=== PATIENT | female | born 1935 | race Caucasian/White ===

== ENCOUNTER 2018-01-28 14:04 | Emergency (ER) | payer MEDICARE, BC ==
[2018-01-28 15:00] LABS: #Eosinphils 0.4 thou/uL (0.0-0.7); #Lymphocytes 2.1 thou/uL (1.20-3.40); #Monocytes 0.4 thou/uL (0.11-0.59); #Neutrophils 5.6 thou/uL (1.40-6.50); %Basophils 0.3 % (0.0-1.0); %Eosinophils 4.9 % (0.0-10.0); %Lymphocytes 24.4 % (21.0-51.0); %Monocytes 5.1 % (0.0-10.0); %Neutrophils 65.4 % (42.0-75.0); Mean Corpuscular HGB CONC 31.9 g/dL (32.0-36.0); Mean Corpuscular Hemoglobin 29.6 pg (27.0-31.0); Mean Corpuscular Volume 92.9 fL (78.0-98.0); Mean Platelet Volume 6.2 fL (7.4-10.4); Platelet Count 376 thou/uL (130-400); RBC Distribution Width 12.1 % (11.5-14.5); Red Blood Cell (RBC) Count 4.06 mill/uL (4.20-5.40); White Blood Cell (WBC) Count 8.6 thou/uL (4.8-10.8)
--- NOTE | 2018-01-28 15:13 | CT ---
CT OF HEAD NONCONTRAST: Indication: Post-traumatic pain. FINDINGS: There is no acute intracranial hemorrhage, midline shift, or ventriculomegaly. There is minimal chron ic ischemic disease. IMPRESSION: 1. No acute intracranial hemorrhage or mass effect. 2. There is a small left parietal scalp hematoma posterior to the vertex. POS: [facility]
[2018-01-28 15:20] LABS: ALT (SGPT) 21 U/L (8-55); AST (SGOT) 24 U/L (5-34); Albumin 4.2 g/dL (3.4-4.8); Alkaline Phosphatase 103 U/L (40-150); Anion Gap 13 mmol/L (10-20); BUN (Urea Nitrogen) 11 mg/dL (9.8-20.1); Bilirubin, Total 0.3 mg/dL (0.2-1.2); Calc. Creatinine Clearance 0 mL/min (70-130); Calcium 9.6 mg/dL (7.8-10.44); Carbon Dioxide 24 mmol/L (23-31); Chloride 101 mmol/L (98-107); Estimated GFR-MDRD 67; Globulin 2.9 g/dL (2.4-3.5); Glucose 98 mg/dL (83-110); Potassium 4.5 mmol/L (3.5-5.1); Protein, Total 7.1 g/dL (6.0-8.3); Sodium 133 mmol/L (136-145)
[2018-01-28 15:24] LABS: CKMB 4.5 ng/mL (0-6.6); Troponin I Less than 0.010 ng/mL (< 0.028)
[2018-01-28] MEDS ORDERED: traMADol HCl 50 MG TAB ONE (15:32)
--- NOTE | 2018-01-28 15:46 | CT ---
CT OF THE PELVIS WITHOUT CONTRAST: COMPARISON: None. HISTORY: Fall with head trauma and pelvic pain. TECHNIQUE: Multiple contiguous axial images were obtained in a CT of the pelvis without contrast. Sagittal and c oronal reformats were performed. FINDINGS: No fracture or dislocation is seen. NO significant degenerative change is seen in either hip. Mild degenerative changes are seen in the lumbar spine. Scattered diverticula are seen in the colon. The right kidney is low-lying. The left kidney was not imaged. IMPRESSION: No evidence of acute osseous abnormality of the bones of the pelvis. POS: [facility]
--- NOTE | 2018-01-28 16:36 | CT ---
CERVICAL SPINE CT NONCONTRAST: 01/28/18 CLINICAL HISTORY: Posttraumatic neck pain. Fall. FINDINGS: There is marked degenerative irregularity of the mid cervical spine with prominent kyphosis. There is a vertebra plana appearance of the C5 vertebral body. Prominent superior end plate irregularity with moderate height loss of C6 is present and there is obliteration of the C6-7 disc space which is wil ersed by osseous fusion of the anterior elements. No acute craniocervical distraction injury. There i s a prominent posterior osteophytosis of the mid cervical spine effacing the ventral aspect of the ve rtebral canal, limited assessment by noncontrast CT imaging. When referencing prior MRI cervical spin e, 10/20/12, a similar configuration of the cervical spine is demonstrated. IMPRESSION: Extensive deformity of the cervical spine demonstrating similar morphology to MRI 10/20/12. Otherwise n o definite acute fracture is seen. POS: [facility]
== END 2018-01-28 16:16 | disposition home or self-care (01) ==
LOC: ERS 14:04
DX: S06.9X1A Unspecified intracranial injury with loss of consciousness of 30 minutes or less, initial encounter (principal); M81.0 Age-related osteoporosis without current pathological fracture; I10 Essential (primary) hypertension; F41.9 Anxiety disorder, unspecified; W01.0XXA Fall on same level from slipping, tripping and stumbling without subsequent striking against object, initial encounter
CPT/HCPCS: 36415; 70450; 72125; 72192; 80053; 82553; 84484; 85025

== ENCOUNTER 2018-06-03 09:55 | Inpatient (IN) | payer MEDICARE, BC ==
[~2018-06-03 09:55] MED LIST: Glycopyrrolate 0.2 MG/ML 5 ML SYRINGE ONE; Ondansetron PF 4 MG/2 ML Vial ONE; PHENYLEPHRINE-NS 100 MCG/ML 10 ML SYRINGE ONE; Rocuronium Bromide 10 MG/ML (10ML VIAL) ONE
[2018-06-03] MEDS ORDERED: Morphine 2 MG/ML SYRINGE ONE ×2 (10:21→10:47)
[2018-06-03] MEDS ORDERED: Ondansetron PF 4 MG/2 ML Vial ONE (10:47)
[2018-06-03 10:52] LABS: #Eosinphils 0.1 thou/uL (0.0-0.7); #Monocytes 0.6 thou/uL (0.11-0.59); #Neutrophils 12.9 thou/uL (1.40-6.50); %Eosinophils 0.7 % (0.0-10.0); %Lymphocytes 6.7 % (21.0-51.0); %Monocytes 4.3 % (0.0-10.0); %Neutrophils 88.3 % (42.0-75.0); Anisocytosis SLIGHT = 6-15 cells (100X) (0-5/hpf); Band 10 % (5-11); Eosinophils 1 % (0-10); Hemoglobin 9.3 g/dL (12.0-16.0); Lymphocytes 7 % (21-51); MDiff Complete? YES; Mean Corpuscular HGB CONC 31.8 g/dL (32.0-36.0); Mean Corpuscular Hemoglobin 26.8 pg (27.0-31.0); Mean Corpuscular Volume 84.2 fL (78.0-98.0); Mean Platelet Volume 6.7 fL (7.4-10.4); Metamyelocyte 1 % (0-0); Monocytes 1 % (0-10); Myelocyte 1 % (0-0); Neutrophil 79 % (42-75); Platelet Count 715 thou/uL (130-400); Platelet Morphology Comment Appears Increased; RBC Distribution Width 15.6 % (11.5-14.5); Red Blood Cell (RBC) Count 3.46 mill/uL (4.20-5.40); White Blood Cell (WBC) Count 14.6 thou/uL (4.8-10.8)
[2018-06-03 10:59] LABS: ALT (SGPT) 12 U/L (8-55); AST (SGOT) 12 U/L (5-34); Albumin 2.8 g/dL (3.4-4.8); Alkaline Phosphatase 103 U/L (40-150); Anion Gap 12 mmol/L (10-20); BUN (Urea Nitrogen) 8 mg/dL (9.8-20.1); Bilirubin, Total 0.3 mg/dL (0.2-1.2); Calc. Creatinine Clearance 0 mL/min (70-130); Calcium 8.1 mg/dL (7.8-10.44); Carbon Dioxide 24 mmol/L (23-31); Chloride 101 mmol/L (98-107); Estimated GFR-MDRD 77; Globulin 2.2 g/dL (2.4-3.5); Glucose 96 mg/dL (83-110); Sodium 134 mmol/L (136-145)
[2018-06-03 11:10] LABS: Bilirubin Small (Negative); Blood, Urine Small (Negative); Clarity CLOUDY (Clear); Glucose, Urine (Dipstick) Negative (Negative); Leukocyte Small (Negative); Nitrite Negative (Negative); Protein, Urine (Dipstick) 30 mg/dL (Neg-Trace); Specific Gravity, Urine 1.016 (1.002-1.036); Urobilinogen 0.2 mg/dL (0.2-1.0)
[2018-06-03 11:19] LABS: Bacteria/HPF None Seen HPF (None Seen); Hyaline Casts/LPF 7-10 HYALINE CAST LPF (0-3 Hyaline); Pathc Cast-AUWi Flag 2.17 (0-2.49); WBC/HPF 0-3 HPF (0-3)
[2018-06-03 11:21] LABS: Yeast-AUWi Flag 40.5 (0-25.0)
[2018-06-03 11:29] LABS: RBC/HPF 0-3 HPF (0-3); Yeast-All Forms None Seen HPF (None Seen)
[2018-06-03] MEDS ORDERED: D5 1/2 NS w/40 mEq KCL 1,000 ML IV SCH (13:45)
--- NOTE | 2018-06-03 15:08 | HP ---
HISTORY OF PRESENT ILLNESS: Cher Perera is an 82-year-old female, lives in [place]. She presented to [facility], and on 05/21/2018, she underwent laparoscopic abdominal washout, colostomy for perforated colon from an impaction. She apparently did well and was discharged, but readmitted on May 29 for drainage of a pelvic abscess. Prior to being discharged, she had a significant colostomy prolapse, but was seen by Dr. Wright, reassured and sent home. This is worsened. She is followed by [facility]. The patient presents to the emergency room at [facility] with significant colostomy prolapse. It cannot be reduced. The patient has had a lifelong problem with constipation. The patient does not want to return to [facility] and wants to assume her care here, thus I am seeing her. ALLERGIES: SULFA. SHE REPORTS OTHER ALLERGIES LISTED IN THE RECORD THAT THEY WERE NOT EFFECTIVE AND HAS SIDE EFFECTS, BUT THERE ARE NO ALLERGIES TO DULOXETINE, LEVOTHYROXINE, MIRTAZAPINE OR PAROXETINE. SHE IS ONLY ALLERGIC TO SULFA. HABITS: Tobacco, none. Alcohol, none. MEDICATIONS AT HOME: 1. Lotrisone cream. 2. Colestid. 3. Colace. 4. Gabapentin 100 mg morning and two tablets at bedtime. 5. Atrovent inhaler p.r.n. 6. Ativan 1 mg p.o. a.m. and two tablets at bedtime for anxiety. 7. Metoprolol XL 25 twice a day. 8. Protonix 40 mg a day. 9. Zoloft 25 mg a day. 10. Tramadol as needed for pain. PAST MEDICAL HISTORY: Chronic constipation, bronchiectasis, degenerative arthropathy, hypertension, mitral valve prolapse, osteoporosis, and peptic ulcer disease. PAST SURGICAL HISTORY: Hysterectomy, salpingo-oophorectomy, prior to that D and C on 05/21/2018, laparoscopic colostomy due to a perforated rectosigmoid from chronic constipation impaction on 05/19/2018, Interventional Radiology drainage of pelvic abscess. REVIEW OF SYSTEMS: Ten-point noncontributory. Family is with her. The patient lives at home with her . She is ambulatory, sometimes with a cane or walker. PHYSICAL EXAMINATION: GENERAL: The patient is stable. VITAL SIGNS: Blood pressure 120/74, heart rate 74, and respiratory rate 18. HEAD, EARS, EYES, NOSE, AND THROAT: Unremarkable. LUNGS: Clear to auscultation. CARDIAC: Regular rate and rhythm. No murmur or gallop. ABDOMEN: Soft and nontender. She has a large colostomy prolapse, probably more than 1 foot. Efforts to reduce this resulted in a small perforation of the colon. The colon is healthy and red otherwise. ASSESSMENT/PLAN: Colostomy prolapse. Plan revision possible laparoscopy today. Risks and benefits were discussed. Will likely need admission overnight postoperatively. Job ID: [id number]
[2018-06-03] MEDS ORDERED: Bupivacaine/Epinephrine 0.25% 30 ML VIAL ONE (15:17)
[2018-06-03] MEDS ORDERED: Bupivacaine PF 0.5% 30 ML VIAL ONE (15:17)
[2018-06-03] MEDS ORDERED: Bupivacaine HCl 0.5%/Epinephrine 1:200,000/PF 30 ml Vial ONE (16:13)
[2018-06-03] MEDS ORDERED: cefOXitin 2 GM VIAL ONE (17:06)
[2018-06-03] MEDS ORDERED: Sodium Chloride 0.9% 100 ML ONE (17:06)
[2018-06-03] MEDS ORDERED: Lidocaine 2% Jelly 5 ML TUBE ONE (17:08)
[2018-06-03] MEDS ORDERED: Fentanyl 100 MCG/2 ML VIAL ONE ×2 (17:08→19:52)
[2018-06-03] MEDS ORDERED: Promethazine HCl 25 MG/ML VIAL ONE (19:52)
[2018-06-03] MEDS ORDERED: Morphine 4 MG/ML VIAL SLOW IVP PRN ×2 (19:54)
[2018-06-03] MEDS ORDERED: Ondansetron ODT 4 MG TAB PO PRN (19:54)
[2018-06-03] MEDS ORDERED: hydrALAZINE 20 MG/ML VIAL SLOW IVP PRN (19:54)
[2018-06-03] MEDS ORDERED: Ondansetron PF 4 MG/2 ML Vial IVP PRN (19:54)
[2018-06-03] MEDS ORDERED: traMADol HCl 50 MG TAB PO PRN (20:00)
[2018-06-03] MEDS: Famotidine 20 MG TAB PO SCH (22:15)
[2018-06-03] MEDS: NS 0.9% w/ 40 MEQ KCL 1,000 ML IV SCH (23:08)
[2018-06-03] MEDS: Ketorolac Tromethamine 30 MG/ML VIAL IVP PRN (23:17)
[2018-06-03] MEDS: Enoxaparin Sodium 40 MG/0.4 ML SYRINGE SC SCH (23:17)
[2018-06-03] MEDS: Acetaminophen 1,000 MG in Premix Bag 1 BAG IVPB PRN (23:17)
[2018-06-04 00:16] VITALS: BMI 14.6
--- NOTE | 2018-06-04 00:39 | OP ---
DATE OF PROCEDURE: 06/03/2018 PREOPERATIVE DIAGNOSES: Diverting loop colostomy, left lower quadrant malfunction with intussusception and prolapse of a foot and a half of colon, incarcerated, cannot reduce and painful. POSTOPERATIVE DIAGNOSES: Diverting loop colostomy, left lower quadrant malfunction with intussusception and prolapse of a foot and a half of colon, incarcerated, cannot reduce and painful with findings of a transverse colon, loop colostomy instead of sigmoid. PROCEDURE PERFORMED: Laparoscopic colon resection with revision of colostomy. ANESTHESIA: General. ESTIMATED BLOOD LOSS: 25 mL. SPECIMEN: Transverse colon to pathology. FINDINGS: Laparoscopy revealed a transverse colostomy in location. After discussion with surgeon, felt it was sigmoid. She has a many year history of chronic constipation, but presented to [facility] 2 weeks ago, conscious sedation, with findings on CAT scan of perirectal air without fluid collection, underwent diverting colostomy laparoscopically by Dr. Bermudez. She was discharged home, but had to return for Interventional Radiology CT-guided drainage of pelvic abscess. This drain is in place. The patient states that she had prolapse in hospital at [facility], Dr. Wright saw her prior to discharge and reassured her that a foot and a half of colon prolapse would resolve. The patient presented to the emergency room today with pain and progression of her prolapse. She was offered to transfer back to [facility], but she wanted to stay at [facility] for care. I was thus consulted. I then discussed with Dr. Bermudez and he communicated the condition as laparoscopic loop diverting colostomy. DESCRIPTION OF PROCEDURE: The patient was taken to the operating room. Under general anesthesia, Kirkland catheter was placed at the beginning of the procedure and removed at the end. Abdomen was prepared with Betadine and draped in routine fashion. The prolapsed colon was hung off sterile towels and covered with sterile towels to the left of the abdomen. The colostomy was in the left lower quadrant. Under sterile conditions, the right lateral subcostal incision made, pneumoperitoneum to 15 mmHg obtained. A Veress needle replaced with a 5 port. Right mid abdominal incision made and a 12 port placed. In the right lower quadrant, an incision made and a 5 port placed. In the right upper quadrant, more medial subcostal incision made and a 5 port placed; all under laparoscopic visualization. I could visualize the colostomy, identify the right colon, followed the right colon towards the colostomy identifying the more proximal colon. The distal colon was identified. Efforts to reduce these 2 limbs was impossible. I then took down the adjacent gastrocolic ligament enough with a LigaSure, identified the distal transverse colon. I then identified the mesentery, which was very thin and dissected this free up towards the prolapsed intussusceptic colon. At this point, the distal colon divided just below the colostomy site with BIANCA blue load fire stapler. The patient will have a long Zulema's pouch. There were some constipated stool in the descending colon. At this point, good hemostasis was noted. I skeletonized the more proximal colon just before entering the colostomy site and traced it back to the right colon and ileocecal valve. Once this was properly identified, I then discontinued the pneumoperitoneum and covered the laparoscopy sites with a sterile drape and proceeded to the lower side of the abdomen where then I removed the maturation Vicryl sutures from the colostomy and freed it bluntly from the colostomy site and pulled it out of the wound. The more proximal transverse colon was then transected at a viable margin with a cautery and 4 Yohannes sutures of 3-0 Vicryl placed to vin the colostomy and then simple sutures of 3-0 Vicryl placed to complete maturation after final division of the colon and intussusception prolapse. Sections submitted to Pathology. At this point, colostomy palpated and was noted to be healthy. It traced back to the right of the abdomen. As colostomy appliance was secured, I then changed gowns and gloves and returned to the sterile portion where the laparoscopy sites were closed with interrupted subdermal 4-0 Monocryl and Converse glue applied. The patient tolerated the procedure well without complications. Job ID: [id number]
[2018-06-04 06:20] LABS: #Eosinphils 0.2 thou/uL (0.0-0.7); #Lymphocytes 1.3 thou/uL (1.20-3.40); #Monocytes 0.4 thou/uL (0.11-0.59); #Neutrophils 8.9 thou/uL (1.40-6.50); %Basophils 0.1 % (0.0-1.0); %Eosinophils 2.2 % (0.0-10.0); %Lymphocytes 11.9 % (21.0-51.0); %Monocytes 3.9 % (0.0-10.0); %Neutrophils 81.9 % (42.0-75.0); Mean Corpuscular HGB CONC 30.9 g/dL (32.0-36.0); Mean Corpuscular Hemoglobin 25.8 pg (27.0-31.0); Mean Corpuscular Volume 83.3 fL (78.0-98.0); Mean Platelet Volume 6.7 fL (7.4-10.4); Platelet Count 619 thou/uL (130-400); RBC Distribution Width 15.4 % (11.5-14.5); Red Blood Cell (RBC) Count 3.12 mill/uL (4.20-5.40); White Blood Cell (WBC) Count 10.8 thou/uL (4.8-10.8)
[2018-06-04] MEDS ORDERED: traMADol HCl 50 MG TAB PO PRN (06:21)
[2018-06-04] MEDS: Arformoterol 15 MCG/2 ML NEB NEB SCH ×2 (06:52→18:51)
[2018-06-04] MEDS: Budesonide 0.5 MG/2 ML NEB NEB SCH ×2 (06:52→18:44)
[2018-06-04 07:21] LABS: ALT (SGPT) 8 U/L (8-55); AST (SGOT) 8 U/L (5-34); Albumin 2.1 g/dL (3.4-4.8); Alkaline Phosphatase 86 U/L (40-150); Anion Gap 12 mmol/L (10-20); BUN (Urea Nitrogen) 8 mg/dL (9.8-20.1); Bilirubin, Total 0.2 mg/dL (0.2-1.2); Calc. Creatinine Clearance 33 mL/min (70-130); Calcium 7.7 mg/dL (7.8-10.44); Carbon Dioxide 22 mmol/L (23-31); Chloride 109 mmol/L (98-107); Estimated GFR-MDRD 74; Globulin 2.2 g/dL (2.4-3.5); Glucose 79 mg/dL (83-110); Potassium 4.2 mmol/L (3.5-5.1); Protein, Total 4.3 g/dL (6.0-8.3); Sodium 139 mmol/L (136-145)
[2018-06-04] MEDS: NS 0.9% w/ 40 MEQ KCL 1,000 ML IV SCH (07:40)
[2018-06-04] MEDS: Acetaminophen 1,000 MG in Premix Bag 1 BAG IVPB PRN (08:06)
[2018-06-04] MEDS ORDERED: Lorazepam 1 MG TAB PO SCH (09:00)
[2018-06-04] MEDS: Amlodipine 10 MG TAB PO SCH (10:19)
[2018-06-04] MEDS: cloNIDine 0.1 MG TAB PO SCH ×2 (10:19→20:59)
[2018-06-04] MEDS: AMOXicillin 250 MG CAP PO SCH ×3 (10:19→20:58)
[2018-06-04] MEDS: Docusate 100 MG CAP PO SCH ×2 (10:20→21:00)
[2018-06-04] MEDS: Lorazepam 1 MG TAB PO SCH ×2 (10:20→20:59)
[2018-06-04] MEDS: Metoprolol Tartrate 25 MG TAB PO SCH ×2 (10:20→21:00)
[2018-06-04] MEDS: Famotidine 20 MG TAB PO SCH ×2 (10:20→20:59)
[2018-06-04] MEDS: Gabapentin 100 MG CAP PO SCH ×2 (10:21→20:59)
[2018-06-04] MEDS: traMADol HCl 50 MG TAB PO PRN (10:21)
[2018-06-04] MEDS: Enoxaparin Sodium 40 MG/0.4 ML SYRINGE SC SCH (21:00)
--- NOTE | 2018-06-04 21:44 | PRG ---
DATE OF SERVICE: SUBJECTIVE: Ms. Perera is doing well after revision of her colostomy, laparoscopic, converting her from a loop transverse colon colostomy to an end-colostomy with a long Zulema pouch. Findings at operation were a large constipated stool ball in the descending colon, but this should pass with time. The patient feels much better this morning, does not have the pain that she had preoperatively. Attempts to ambulate the patient today revealed that she is severely weak and not independent at all and it is recommended she go to rehab. I have consulted Case Management and family, who has encouraged the patient to go to rehab, and I think she will be agreeable await that assessment. She is ready to transfer to rehab at any time. OBJECTIVE: VITAL SIGNS: Temperature 98.3 degrees and blood pressure 118/55. LUNGS: Clear to auscultation. CARDIAC: Regular rate and rhythm without murmur or gallop. ABDOMEN: Soft, nontender, and nondistended. She has gas in her colostomy bag. Her colostomy is healthy and pink, slightly edematous, but healthy. ABDOMEN: Soft. Good bowel sounds. EXTREMITIES: Unremarkable. LABORATORY DATA: This morning, her white count is 10 and hemoglobin 8. Basic metabolic profile is normal. ASSESSMENT AND PLAN: 1. Severe deconditioning. Recommend rehab and she is ready for transfer at any time. We will saline lock her. Resume her home medications. She will need laxatives. 2. The patient has a drain placed in her pelvis by Interventional Radiology. Nurses last night reported to me that the drain was turned to off. I have asked the family to try to find out what kind of drainage has been coming out. Once the drain was placed to open, there was stool material draining out. Orders were given for the nurses to irrigate this drain with 10 mL of saline into the patient three times a day to keep it patent. It is not surprising this was draining stool material as she had severe fecal impaction and rectal ulceration at [facility] requiring diversion colostomy. At that time, CAT scans revealed mostly air around the rectum, perirectal space. I talked to Dr. Bermudez, and at the time of her diverting colostomy, there was only air, no fluid collection, nothing to drain. She, however, was readmitted, brought back to the hospital. Interventional Radiology placed a drain to drain this current process. The patient is hemodynamically stable and not septic. I would recommend that we irrigate this catheter, monitor the drainage output, and repeat her CAT scan next week of the pelvis to check the status of this collection. Hopefully, this will resolve without further surgical intervention, but currently none is indicated as she is hemodynamically stable, afebrile, without signs of sepsis, and she has not had any pain. Job ID: [id number]
[2018-06-05] MEDS: Arformoterol 15 MCG/2 ML NEB NEB SCH ×2 (06:51→19:37)
[2018-06-05] MEDS: Budesonide 0.5 MG/2 ML NEB NEB SCH ×2 (06:51→19:36)
[2018-06-05] MEDS: Docusate 100 MG CAP PO SCH ×2 (08:59→22:27)
[2018-06-05] MEDS: Famotidine 20 MG TAB PO SCH ×2 (08:59→22:28)
[2018-06-05] MEDS: Gabapentin 100 MG CAP PO SCH ×2 (09:00→22:28)
[2018-06-05] MEDS: Amlodipine 10 MG TAB PO SCH (09:00)
[2018-06-05] MEDS: Metoprolol Tartrate 25 MG TAB PO SCH ×2 (09:00→22:28)
[2018-06-05] MEDS: cloNIDine 0.1 MG TAB PO SCH ×2 (09:00→22:29)
[2018-06-05] MEDS: Lorazepam 1 MG TAB PO SCH ×2 (09:00→22:29)
[2018-06-05] MEDS: Ketorolac Tromethamine 30 MG/ML VIAL IVP PRN (09:02)
[2018-06-05] MEDS: AMOXicillin 250 MG CAP PO SCH ×3 (10:51→22:28)
[2018-06-05 13:46] LABS: Hemoglobin 8.4 g/dL (12.0-16.0); Mean Corpuscular HGB CONC 30.4 g/dL (32.0-36.0); Mean Corpuscular Hemoglobin 26.7 pg (27.0-31.0); Mean Corpuscular Volume 87.9 fL (78.0-98.0); Mean Platelet Volume 6.8 fL (7.4-10.4); Platelet Count 665 thou/uL (130-400); RBC Distribution Width 15.5 % (11.5-14.5); Red Blood Cell (RBC) Count 3.14 mill/uL (4.20-5.40); White Blood Cell (WBC) Count 13.9 thou/uL (4.8-10.8)
[2018-06-05 13:55] LABS: Anion Gap 11 mmol/L (10-20); BUN (Urea Nitrogen) 10 mg/dL (9.8-20.1); Calc. Creatinine Clearance 31 mL/min (70-130); Calcium 8.1 mg/dL (7.8-10.44); Carbon Dioxide 21 mmol/L (23-31); Chloride 107 mmol/L (98-107); Estimated GFR-MDRD 71; Glucose 112 mg/dL (83-110); Potassium 4.6 mmol/L (3.5-5.1); Sodium 134 mmol/L (136-145)
[2018-06-05 14:48] LABS: Anisocytosis SLIGHT = 6-15 cells (100X) (0-5/hpf); Band 21 % (5-11); Eosinophils 2 % (0-10); Hypochromia SLIGHT = 6-15 cells (100X) (0-5/hpf); Lymphocytes 4 % (21-51); MDiff Complete? YES; Monocytes 1 % (0-10); Neutrophil 71 % (42-75); Ovalocytes SLIGHT = 2-5 cells (100X) (0-1/hpf); Platelet Morphology Comment Appears Increased; Polychromasia SLIGHT = 2-3 cells (100X) (0-2/hpf); Reactive Lymphocytes 1 % (0-10)
--- NOTE | 2018-06-05 16:24 | PQF ---
CLINICAL DOCUMENTATION IMPROVEMENT CLARIFICATION FORM: ICD-10 Updated PLEASE DO AN ADDENDUM TO THE PROGRESS NOTE WITH ANY DOCUMENTATION UPDATES OR ADDITIONS AND CARRY THROUGH TO DC SUMMARY. THANK YOU. Date: 06/05/2018; 06/06/2018 ATTN: Dr. Manzano Please exercise your independent, professional judgment in responding to the clarification form. Clinical indicators are provided on the bottom of this form for your review Please check appropriate box(s): [ ] Underweight without malnutrition [ yes ] Cachexia [ yes] Other diagnosis _chronic constipation,fecal impaction, rectal erosion, pelvic abscess, colostomy [prolapse/intussuception [ ] Unable to determine In addition, please specify: Present on Admission (POA): [ yes ] Yes [ ] No [ ] Unable to determine CLINICAL INDICATORS - SIGNS / SYMPTOMS / LABS PN 06/04: Severe deconditioning. Senior Staff Psychologist Assessment 06/05: Pt was triggered for low BMI 14.6 Estimated needs: kcal/kg for healing in underweight patient KCal range: 3254-0917 kcal G Protein Range: 43-73 g RISKS: H&P: 82 yo. Laparoscopic colostomy due to a perforated rectosigmoid from chronic constipation impaction on 05/19/2018 , Interventional Radiology drainage of pelvic abscess. Colostomy prolapse. Op Note 06/03: Laparoscopic colon resection with revision of colostomy TREATMENT: Order 06/05: Supplement: Ensure Enlive BID Moderate Malnutrition (in acute illness) Energy Intake: <75% of estimated energy requirement for > 7 days Weight Loss: 1-2%/1 week; 5%/ 1 month; 7.5%/3 months Other: mild body fat loss; mild muscle mass loss; mild fluid accumulation; Severe Malnutrition (in acute illness) Energy Intake: < 50% of estimated energy requirement for > 5 days Weight Loss: >1-2%/1 week; >5%/1 month; >7.5%/3 months Other: moderate body fat loss; moderate muscle mass loss; moderate- severe fluid accumulation; measurably reduced telephone sterilizer strength Moderate Malnutrition (in chronic illness) Energy Intake: <75% of estimated energy requirement for >1 month Weight Loss: 5%/1 month; 7.5%/3 months; 10%/6 months; 20%/1 year Other: mild body fat loss; mild muscle mass loss; mild fluid accumulation Severe Malnutrition (in chronic illness) Energy Intake: <75% of estimated energy requirement for >1 month Weight Loss: >5%/1 month; >7.5%/3 months; >10%/6 months; >20%/1 year Other: severe body fat loss; severe muscle mass loss; severe fluid accumulation; measurably reduced telephone sterilizer strength Thank you, Fouzia (This form is maintained as a part of the permanent medical record) 2015 [employer], [place]. All Rights Reserved Fouzia Colindres RN, BSN [email or web address] Office: [phone] [facility] MED[facility] CENTERDarlyn
--- NOTE | 2018-06-05 20:43 | PRG ---
DATE OF SERVICE: 06/05/2018 SUBJECTIVE: Ms. Perera is doing well today. She complains of inability to eat well because of poor fitting dentures. She is not independently mobile, but is refusing rehab. She wants to go home with her caregivers. OBJECTIVE: VITAL SIGNS: Temperature 98.3 degrees, pulse 83, and blood pressure 107/58. LABORATORY DATA: White count 13.9, hemoglobin 8.4. Basic metabolic profile normal. The patient seemed to be little confused this morning, but was moving all extremities and following commands and arousable. She had not taken any medications that would alter her mental status. This evening, she is alert, oriented, and appropriate. She states that she would get out of bed if somebody would help her, but when nurses in therapy has worked with her, she was very weak and not independent at all. ASSESSMENT AND PLAN: Severe deconditioning. The patient insisted on going home. We will discuss with the patient's family tomorrow and plan discharge home tomorrow if she refuses rehab. Job ID: [id number]
[2018-06-05] MEDS: Acetaminophen 500 MG TAB PO PRN (22:27)
[2018-06-05] MEDS: Enoxaparin Sodium 40 MG/0.4 ML SYRINGE SC SCH (22:27)
[2018-06-05] MEDS: NS 0.9% w/ 40 MEQ KCL 1,000 ML IV SCH (23:24)
[2018-06-06] MEDS: traMADol HCl 50 MG TAB PO PRN ×2 (00:43→08:25)
[2018-06-06] MEDS: Arformoterol 15 MCG/2 ML NEB NEB SCH (08:17)
[2018-06-06] MEDS: Budesonide 0.5 MG/2 ML NEB NEB SCH (08:19)
[2018-06-06] MEDS: cloNIDine 0.1 MG TAB PO SCH (08:24)
[2018-06-06] MEDS: Amlodipine 10 MG TAB PO SCH (08:26)
[2018-06-06] MEDS: Lorazepam 1 MG TAB PO SCH (08:26)
[2018-06-06] MEDS: Famotidine 20 MG TAB PO SCH (08:26)
[2018-06-06] MEDS: Metoprolol Tartrate 25 MG TAB PO SCH (08:26)
[2018-06-06] MEDS: Acetaminophen 500 MG TAB PO PRN (08:27)
[2018-06-06] MEDS: Docusate 100 MG CAP PO SCH (08:28)
[2018-06-06] MEDS: Gabapentin 100 MG CAP PO SCH (08:28)
[2018-06-06] MEDS: AMOXicillin 250 MG CAP PO SCH (08:28)
--- NOTE | 2018-06-06 10:02 | PRG ---
DATE OF SERVICE: 06/06/2018 SUBJECTIVE: Ms. Perera is doing well today. She is tolerating her diet. She is still complaining of problems to eating because of a denture fit. She is tolerating her nutritional shakes and consuming a soft meals. Her colostomy is functioning well. OBJECTIVE: ABDOMEN: Soft and nontender. LUNGS: Clear to auscultation. CARDIAC: Regular rate and rhythm without murmur or gallop. VITAL SIGNS: Pulse 85, blood pressure 146/68. LABORATORY DATA: No laboratories this morning. ASSESSMENT AND PLAN: Doing well. The patient's family wants her to go to rehab. The patient needs to go to rehab. She has terrible deconditioning prior to this hospitalization. Home nursing was suggesting rehab. I have talked to the patient and she is agreeable to going to rehab. Plan is to transfer to rehab today. In rehab, they should irrigate her pelvic drain placed by Interventional Radiology of [facility] three times a day with normal saline 10 mL continue to leave it open to gravity drainage and record the output and when the output is less than 20 to 15 in 24 hours, we will repeat her pelvic CAT scan. Repeat this with p.o. and IV contrast. Hopefully, we can repeat that next week. Plan is for have the rehab nurses call me on Saturday next week to report the drainage and consider repeating her CAT scan and at some point, we will plan to remove the drain in the next week or two pending the drainage output. Currently, she is draining stool-like material, which is not expected, but she is hemodynamically stable. I placed her on Augmentin 500 b.i.d. till next week. In regard to the output, if she remained stable, I will stop the Augmentin. Job ID: [id number]
[2018-06-06 11:41] VITALS: BP 142/69; TEMP 98.5
--- NOTE | 2018-06-06 15:04 | DIS ---
DATE OF ADMISSION: 06/03/2018 DATE OF DISCHARGE: 06/06/2018 DISCHARGE DIAGNOSES: Lifelong history of chronic constipation, elongated colon with fecal impaction with rectal excoriation and perforation treated at [facility] where Dr. Bermudez performed diverting colostomy. Initially when she presented there was no fluid collection, only air seen in the presacral area. The patient was discharged home and returned to the hospital at [facility] where she underwent drainage of a presacral abscess by Interventional Radiology. During that hospitalization, she has significant colostomy prolapse. This is a transverse colon loop colostomy. The patient was sent home, this worsened. She presented to [facility], was given the option of returning to [facility] under care Dr. Bermudez, but elected to stay here under my care. The patient was taken to the operating room the same night for prolapse intussuscepted transverse colostomy with obstruction, prolapsed intussusception at least to a foot and a half. She was taken to the operating room where laparoscopically this was attended to and a long Zulema's pouch created and colon resected and colostomy reformed at the same site. Postoperatively, the patient did well, but has terrible deconditioning. She has been transferred to the rehab for reconditioning before going home with home health. She has an interventionally placed drain as described and at this facility it was noted the stopcock was turned off and not draining. It was turned on and drainage initiated 3 times a day, 10 mL normal saline, which should be continued. This had stool-like drainage, which is not unexpected and hopefully this will resolve with time. She has a diverting colostomy. She remained non septic, but was placed on Augmentin 500 b.i.d. for 7 days. The patient has chronic bronchiectasis, she is on inhalers at home and these were continued. She has been transferred to rehab for reconditioning, colostomy care prior to going home. MEDICATIONS: Include: 1. Tylenol p.r.n. 2. DuoNeb p.r.n. 3. Norvasc 10 mg daily. 4. Amoxicillin 500 t.i.d. for a week. 5. Brovana 15 mcg nebs b.i.d. 6. Pulmicort 0.5 mg b.i.d. 7. Clonidine 0.1 mg b.i.d. 8. Colace daily. 9. Lovenox daily. 10. Pepcid p.o. 11. Neurontin 200 mg at bedtime. 12. Gabapentin 100 mg daily. 13. Ativan 1 mg p.o. daily, 2 mg at bedtime. 14. Metoprolol 25 mg b.i.d. 15. P.r.n. Zofran. 16. Sertraline. 17. Zoloft 50 mg daily. 18. Tramadol p.r.n. Nurses at the rehab will call me personally [phone] to report her interventional drainage for 24 hour. We will consider repeating her CAT scan in the near future. Follow up the pelvic abscess to see, if we can remove the drain. It is draining stool like material, which is not unexpected and no concern. Job ID: [id number]
[2018-06-06] MEDS ORDERED: AMOXicillin 250 MG CAP PO SCH (21:00)
--- NOTE | 2018-06-07 16:53 | EKG ---
Test Reason : Blood Pressure : / mmHG Vent. Rate : 080 BPM Atrial Rate : 080 BPM P-R Int : 160 ms QRS Dur : 072 ms QT Int : 384 ms P-R-T Axes : 106 056 069 degrees QTc Int : 442 ms Normal sinus rhythm Normal ECG Confirmed by AMARIS GREGORY DO ([id number]), magazine editor ALESHA PEREA ([id number]) on 06/07/2018 4:52:48 PM Referred By: GURINDER Confirmed By:AMARIS GREGORY DO
== END 2018-06-06 15:15 | DRG 330 ==
LOC: ERS 09:55 → SURG B 20:56
PROVIDERS: ADMIT Specialist; ATTEND Specialist
PROC: 0DBL4ZZ Excision of Transverse Colon, Percutaneous Endoscopic Approach (ICD-10-PCS; principal; 2018-06-03)
DX: K94.09 Other complications of colostomy (principal); K56.1 Intussusception; R64 Cachexia; Z68.1 Body mass index [BMI] 19.9 or less, adult; Y83.8 Other surgical procedures as the cause of abnormal reaction of the patient, or of later complication, without mention of misadventure at the time of the procedure; I10 Essential (primary) hypertension; E87.6 Hypokalemia; K59.09 Other constipation; I34.1 Nonrheumatic mitral (valve) prolapse; M81.0 Age-related osteoporosis without current pathological fracture; M19.90 Unspecified osteoarthritis, unspecified site; K27.9 Peptic ulcer, site unspecified, unspecified as acute or chronic, without hemorrhage or perforation; J47.9 Bronchiectasis, uncomplicated; F41.9 Anxiety disorder, unspecified; M06.9 Rheumatoid arthritis, unspecified; N73.9 Female pelvic inflammatory disease, unspecified; Z88.2 Allergy status to sulfonamides; Z79.899 Other long term (current) drug therapy; R53.81 Other malaise; Z86.19 Personal history of other infectious and parasitic diseases
CPT/HCPCS: 36415; 36416; 80048; 80053; 81003; 81015; 83605; 85025; 87040; 88307; 93005; 94640; 96365; 96375; J0131; J0670; J0694; J1650; J1885; J2270; J2405; J2550; J3010; J3480; J7050; J7626; S0020